=== PATIENT | male | born 1990 | race Caucasian/White ===

== ENCOUNTER 2021-03-30 18:40 | Observation (INO) | payer MEDICAID, OTHER ==
[~2021-03-30] VITALS: Ht 188 cm; Wt 85.0 kg
[2021-03-30] MEDS ORDERED: LORazepam 1MG TABLET PO ONE (19:00)
[2021-03-30 19:30] LABS: BASOPHILS % (AUTO) 0 % (0-1); EOSINOPHILS % (AUTO) 2 % (1-7); LYMPHOCYTES % (AUTO) 16 % (22-44); MEAN CORPUSCULAR HEMOGLOBIN 31.3 pg (27.5-34.5); MEAN CORPUSCULAR HGB CONC 34.8 g/dL (33.2-36.2); MEAN PLATELET VOLUME 6.7 fL (7.4-10.4); MONOCYTES % (AUTO) 12 % (2-9); NEUTROPHILS % (AUTO) 69 % (42-75); PLATELET COUNT 355 x10^3/uL (130-400); RED BLOOD COUNT 5.01 x10^6/uL (4.38-5.82); RED CELL DISTRIBUTION WIDTH 12.8 % (9.4-14.8)
[2021-03-30 19:42] LABS: ALANINE AMINOTRANSFERASE 24 U/L (12-78); ALBUMIN 3.8 g/dL (3.4-5.0); ANION GAP 7 mmol/L (5-15); CALCIUM 9.3 mg/dL (8.5-10.1); CHLORIDE 99 mmol/L (98-107); CREATININE 1.12 mg/dL (0.7-1.3); SALICYLATE LEVEL 2.6 mg/dL (2.8-20.0)
[2021-03-30 19:52] LABS: ALKALINE PHOSPHATASE 100 U/L (45-117); BILIRUBIN,TOTAL 0.4 mg/dL (0.2-1.0); TOTAL PROTEIN 8.1 g/dL (6.4-8.2)
--- NOTE | 2021-03-30 20:12 | NUR ---
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 DENIES SI/HI AT THIS TIME.
--- NOTE | 2021-03-30 20:30 | NUR ---
ROOM SECURE. GARAGE DOORS DOWN. SI PRECAUTIONS MAINTAINED. WILL CONTINUE TO MONITOR.
--- NOTE | 2021-03-30 20:35 | NUR ---
PATIENT BELONGINGS PLACED IN BAG WITH PATIENT LABEL. 3 BAGS AND BOOKBAG LOCKED AWAY. PATIENT UNDRESSED AND IN GOWN. PROVIDED WITH BLANKETS/ WATER/ MILK/ TURKEY SANDWHICH AND CHIPS. PATIENT VERY APPRECIATIVE. DENIES ANY FURTHER NEEDS AT THIS TIME. WILL CONTINUE TO MONITOR.
--- NOTE | 2021-03-30 20:46 | NUR ---
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 SITTER PRESENT AT DOORWAY FOR OBS
[2021-03-30] MEDS ORDERED: LORazepam 1MG TABLET ONE (20:54)
[2021-03-30 21:11] LABS: AMPHETAMINE SCREEN, URINE Negative (Negative); BARBITURATE SCREEN, URINE Negative (Negative); BENZODIAZEPINE SCREEN, URINE Negative (Negative); CANNABINOID SCREEN, URINE Negative (Negative); COCAINE SCREEN, URINE Negative (Negative); METHADONE SCREEN, URINE Negative (Negative); OPIATE SCREEN, URINE Negative (Negative)
--- NOTE | 2021-03-30 21:25 | NUR ---
PATIENT PROVIDED WITH BLANKETS/ PILLOW. LIGHTS TURNED DOWN. PATIENT DENIES NEEDS AT THIS TIME. SI PRECAUTIONS REMAIN. 1:[address] ROOM SECURE. WILL CONTINUE TO MONITOR.
[2021-03-30] MEDS ORDERED: LORazepam 1MG TABLET PO PRN (22:00)
--- NOTE | 2021-03-30 22:00 | NUR ---
PATIENT LYING IN STRETCHER WITH EYES CLOSED. NAD. 1:[address] SI PRECAUTIONS REMAIN. ROOM SECURE. DENIES NEEDS AT THIS TIME. WILL CONTINUE TO MONITOR.
--- NOTE | 2021-03-31 00:50 | NUR ---
REPORT GIVEN TO ZACH ARITA
--- NOTE | 2021-03-31 00:53 | NUR ---
Report from Paradise SERRANO
--- NOTE | 2021-03-31 00:59 | NUR ---
FAXED PACKET TO [facility] AND [facility]
--- NOTE | 2021-03-31 01:14 | NUR ---
JOVANNY ([facility]) PT WOULD HAVE TO BE SELF PAY
--- NOTE | 2021-03-31 01:22 | NUR ---
Pt resting in bed with eyes closed, even and symmetrical chest rise, sitter in view of pt, WCTM
--- NOTE | 2021-03-31 02:00 | NUR ---
Patient resting with eyes closed, bilateral chest rise and fall, no apparent distress. Continue to monitor patients condition with sitter at bedside.
--- NOTE | 2021-03-31 03:00 | NUR ---
Patient resting with eyes closed, bilateral chest rise and fall, no apparent distress. Continue to monitor patients condition with sitter at bedside.
--- NOTE | 2021-03-31 04:00 | NUR ---
Patient resting with eyes closed, bilateral chest rise and fall, no apparent distress. Continue to monitor patients condition with sitter at bedside.
--- NOTE | 2021-03-31 05:01 | NUR ---
Patient resting with eyes closed, bilateral chest rise and fall, no apparent distress. Continue to monitor patients condition with sitter at bedside.
--- NOTE | 2021-03-31 06:06 | NUR ---
Patient resting with eyes closed, bilateral chest rise and fall, no apparent distress. Continue to monitor patients condition with sitter at bedside.
--- NOTE | 2021-03-31 06:53 | NUR ---
REPORT FROM ZACH ARITA. PT RESTING IN [facility], EYES CLOSED, NADN AT THIS TIME, TM.
[2021-03-31] MEDS: NICOTINE 21 MG/24 HR PATCH.TD24 TD SCH (11:30)
[2021-03-31] MEDS ORDERED: HYDROXYZINE PAMOATE 50MG CAP PO PRN (12:00)
[2021-03-31] MEDS ORDERED: NICOTINE 21 MG/24 HR PATCH.TD24 ONE (12:15)
--- NOTE | 2021-03-31 13:10 | NUR ---
REPORT TO ZACH SHIPMAN.
[2021-03-31] MEDS: BENZTROPINE 1 MG TABLET PO SCH ×2 (13:42→21:00)
--- NOTE | 2021-03-31 13:53 | NUR ---
PT. REMAINS CALM AND COOPERATIVE. SITTER OUTSIDE OF THE PT.'S ROOM AND SAFETY MEASURES ARE BEING MAINTAINED. GARAGE DOORS ARE DOWN. PT. WAS MEDICATED PER MD ORDERS. VSS. PT. IS EATING LUNCH AT THIS TIME.
--- NOTE | 2021-03-31 15:21 | NUR ---
PT. IS RESTING WITHOUT CONCERNS. PT. HAS BEEN GIVEN PO FLUIDS AND REMAINS IN DIRECT LINE OF SITE OF THE SITTER.
--- NOTE | 2021-03-31 17:09 | NUR ---
PT. WAS GIVEN A MEAL TRAY.
--- NOTE | 2021-03-31 17:26 | NUR ---
PT. REMAINS CALM AND COOPERATIVE. HE FINISHED HIS DINNER. VSS. SITTER OUTSIDE OF HIS ROOM. SAFETY MEASURES ARE BEING MAINTAINED.
--- NOTE | 2021-03-31 19:00 | NUR ---
PT RESTING IN NO APPARENT DISTRESS. ALERT AND ORIENTED. CALM AND COOPERATIVE. SITTER AT BEDSIDE. ROOM SECURED. AWAITING INPATIENT PSYCH PLACEMENT.
--- NOTE | 2021-03-31 20:00 | NUR ---
PT RESTING IN NO APPARENT DISTRESS. ALERT AND ORIENTED. CALM AND COOPERATIVE. SITTER AT BEDSIDE. ROOM SECURED. AWAITING INPATIENT PSYCH PLACEMENT.
[2021-03-31] MEDS ORDERED: BENZTROPINE 1 MG TABLET ONE (20:30)
--- NOTE | 2021-03-31 20:33 | NUR ---
Med requested from Pharmacy.
--- NOTE | 2021-03-31 21:00 | NUR ---
PT RESTING IN NO APPARENT DISTRESS. ALERT AND ORIENTED. CALM AND COOPERATIVE. SITTER AT BEDSIDE. ROOM SECURED. AWAITING INPATIENT PSYCH PLACEMENT.
--- NOTE | 2021-03-31 22:00 | NUR ---
PT RESTING IN NO APPARENT DISTRESS. ALERT AND ORIENTED. CALM AND COOPERATIVE. SITTER AT BEDSIDE. ROOM SECURED. AWAITING INPATIENT PSYCH PLACEMENT.
--- NOTE | 2021-03-31 23:00 | NUR ---
PT RESTING IN NO APPARENT DISTRESS. ALERT AND ORIENTED. CALM AND COOPERATIVE. SITTER AT BEDSIDE. ROOM SECURED. AWAITING INPATIENT PSYCH PLACEMENT.
--- NOTE | 2021-04-01 | NUR ---
PT RESTING IN NO APPARENT DISTRESS. ALERT AND ORIENTED. CALM AND COOPERATIVE. SITTER AT BEDSIDE. ROOM SECURED. AWAITING INPATIENT PSYCH PLACEMENT.
--- NOTE | 2021-04-01 00:39 | NUR ---
Pt assisted to shower at this time. Bathing himself independently, denies needs. Sitter outside of shower. Door cracked opened, privacy maintained. Pt provided with hospital bed, mathew removed from room at this time.
--- NOTE | 2021-04-01 01:00 | NUR ---
PT RESTING IN NO APPARENT DISTRESS. ALERT AND ORIENTED. CALM AND COOPERATIVE. SITTER AT BEDSIDE. ROOM SECURED. AWAITING INPATIENT PSYCH PLACEMENT.
--- NOTE | 2021-04-01 02:00 | NUR ---
PATIENT LYING IN HOSPITAL INPATIENT BED WITH EYES CLOSED. NAD. 1:[address] ROOM REMAINS SECURE. WILL CONTINUE TO MONITOR.
--- NOTE | 2021-04-01 03:20 | NUR ---
PATIENT LYING IN HOSPITAL INPATIENT BED WITH EYES CLOSED. NAD. 1:[address] ROOM REMAINS SECURE. WILL CONTINUE TO MONITOR.
--- NOTE | 2021-04-01 04:00 | NUR ---
PATIENT LYING IN HOSPITAL INPATIENT BED WITH EYES CLOSED. NAD. 1:[address] ROOM REMAINS SECURE. WILL CONTINUE TO MONITOR.
--- NOTE | 2021-04-01 05:24 | NUR ---
PATIENT LYING IN HOSPITAL INPATIENT BED WITH EYES CLOSED. NAD. 1:[address] ROOM REMAINS SECURE. WILL CONTINUE TO MONITOR.
--- NOTE | 2021-04-01 06:28 | NUR ---
RN TO BEDSIDE FOR VITAL SIGNS. PATIENT DENIES NEEDS AT THIS TIME. VSS. PT REPORTS HE SLEPT WELL OVER NIGHT. 1:[address] SI PRECAUTIONS REMAIN IN PLACE. ROOM REMAINS SECURE. WILL CONTINUE TO MONITOR.
--- NOTE | 2021-04-01 06:53 | NUR ---
REPORT GIVEN TO ZACH HILL.
--- NOTE | 2021-04-01 06:58 | NUR ---
PT ASLEEP IN BED, NAD NOTED AT THIS TIME. SITTER OUTSIDE OF ROOM FOR DIRECT OBSERVATION AND Q15 MIN SAFETY CHECKS.
--- NOTE | 2021-04-01 08:02 | NUR ---
PT ASLEEP IN BED, NAD NOTED. RESPIRATIONS EVEN AND UNLABORED ON RA. AWAITING BREAKFAST TRAY. SITTER OUTSIDE OF ROOM FOR DIRECT OBSERVATION AND Q15 MIN SAFETY CHECKS.
[2021-04-01] MEDS ORDERED: BENZTROPINE 1 MG TABLET ONE ×2 (08:57→20:44)
[2021-04-01] MEDS ORDERED: NICOTINE 21 MG/24 HR PATCH.TD24 ONE (08:57)
[2021-04-01] MEDS: NICOTINE 21 MG/24 HR PATCH.TD24 TD SCH (09:06)
[2021-04-01] MEDS: BENZTROPINE 1 MG TABLET PO SCH ×2 (09:06→20:46)
--- NOTE | 2021-04-01 09:13 | NUR ---
PT GIVEN BREAKFAST TRAY. PT AWAKENS EASILY AND IS COOPERATIVE WITH VS MEASUREMENT AND ASSESSMENT BY ED RN. NAD NOTED AT THIS TIME. MEDICATIONS ADMINISTERED PER EMAR. AWAITING THIRD AM MED FROM PHARMACY, REQUEST SENT 20 MIN AGO.
--- NOTE | 2021-04-01 09:38 | NUR ---
CALL TO PHARMACY FOR FOLLOW UP ON MED REQUEST.
--- NOTE | 2021-04-01 11:00 | NUR ---
BED DIRECTION CHANGED SO PT COULD WATCH TELEVISION. REMOTE GIVEN TO PT. NAD NOTED AT THIS TIME. SITTER OUTSIDE OF ROOM FOR DIRECT OBSERVATION AND Q15 MIN SAFETY CHECKS. LUNCH ORDERED FOR PT.
--- NOTE | 2021-04-01 12:02 | NUR ---
PT RECLINED IN BED, RESPIRATIONS EVEN AND UNLABORED ON RA. NAD NOTED AT THIS TIME. SITTER OUTSIDE OF ROOM FOR DIRECT OBSERVATION AND Q15 MIN SAFETY CHECKS.
--- NOTE | 2021-04-01 13:02 | NUR ---
PT ASLEEP IN BED, RESPIRATIONS EVEN AND UNLABORED ON RA. NAD NOTED AT THIS TIME. SITTER OUTSIDE OF ROOM FOR DIRECT OBSERVATION AND Q15 MIN SAFETY CHECKS.
--- NOTE | 2021-04-01 14:21 | NUR ---
REQUEST SENT TO PHARMACY FOR PM MEDS.
--- NOTE | 2021-04-01 15:02 | NUR ---
PT RESTING COMFORTABLY IN BED, NAD NOTED AT THIS TIME. RESPIRATIONS EVEN AND UNLABORED ON RA. SITTER OUTSIDE OF ROOM FOR DIRECT OBSERVATION AND Q15 MIN SAFETY CHECKS.
--- NOTE | 2021-04-01 15:26 | NUR ---
YANIV AT [facility] [place] SAID POSSIBLY TOMORROW IN MORNING. CALL [phone] AROUND 6 AM TO CHECK
--- NOTE | 2021-04-01 15:48 | NUR ---
SENTHIL CALLED BACK. PT IS ACCEPTED FOR 04/[address] SCOTT. NUMBER FROM PREVIOUS NOTE TO BE CALL AFTER 0600 TO GIVE REPORT
--- NOTE | 2021-04-01 16:23 | NUR ---
THIS RN BACK FROM LUNCH BREAK. PT RESTING COMFORTABLY IN BED. SITTER OUTSIDE OF ROOM FOR DIRECT OBSERVATION AND Q15 MIN SAFETY CHECKS.
--- NOTE | 2021-04-01 17:04 | NUR ---
PT RESTING IN BED WATCHING TELEVISION. NAD NOTED AT THIS TIME. SITTER OUTSIDE OF ROOM FOR DIRECT OBSERVATION AND Q15 MIN SAFETY CHECKS. SIDE RAIL UP. AWAITING MEAL TRAY.
--- NOTE | 2021-04-01 18:00 | NUR ---
PT RESTING WITH EYES CLOSED IN BED, NAD NOTED AT THIS TIME. SITTER OUTSIDE OF ROOM FOR DIRECT OBSERVATIONS AND Q15 MIN SAFETY CHECKS. WATER ADMINISTERED.
--- NOTE | 2021-04-01 18:44 | NUR ---
MEAL TRAY PROVIDED. NAD NOTED AT THIS TIME. ADDITIONAL PO FLUIDS GIVEN. NAD NOTED AT THIS TIME. SITTER OUTSIDE OF ROOM FOR DIRECT OBSERVATION AND Q15 MIN SAFETY CHECKS.
--- NOTE | 2021-04-01 18:45 | NUR ---
BEDSIDE REPORT RECEIVED FROM LIZ SERRANO, PT CARE TRANSFERRED AT THIS TIME.
--- NOTE | 2021-04-01 19:01 | NUR ---
REPORT TO ZACH CHOUDHARY.
[2021-04-01 19:29] VITALS: BP 127/72
--- NOTE | 2021-04-01 20:14 | NUR ---
Patient is resting comfortably in hospital bed, NAD, room secured, sitter in line of sight. Bed in lowest, rails engaged, even and unlabored respirations noted at this time, eyes closed. WCTM.
--- NOTE | 2021-04-01 21:32 | NUR ---
MURRAY RN: TRANSORT ARRANGED VIA [facility] FOR 04/02/21 @0800AM.
--- NOTE | 2021-04-02 02:21 | NUR ---
Patient is resting comfortably in hospital bed, eyes closed, NAD, room secured, sitter in line of sight. Bed in lowest, rails engaged, even and unlabored respirations noted at this time, report to Veronica SERRANO, pt care transferred at this time.
--- NOTE | 2021-04-02 02:54 | NUR ---
pt sleeping in bed, resp even/unlbaored. no s/s of any distress. in line of sight of sitter
--- NOTE | 2021-04-02 04:19 | NUR ---
pt sleeping in gurney, resp even/unlabored. in line of sight of emili
--- NOTE | 2021-04-02 06:50 | NUR ---
report from ZACH Joshua
--- NOTE | 2021-04-02 07:17 | NUR ---
PT RESTING ON GURNEY, NADN, RESPIRATIONS EVEN AND UNLABORED. PT IN SAFE ENVIRONMENT, SITTER IN VIEW. PT UPDATED ON POC. DENIES SI/HI AT THIS TIME.
--- NOTE | 2021-04-02 08:00 | NUR ---
PT CONTINUES RESTING ON GURNEY, NADN, RESPIRATIONS EVEN AND UNLABORED. PT IN SAFE ENVIRONMENT, SITTER IN VIEW. PT STATES NO NEEDS AT THIS TIME
--- NOTE | 2021-04-02 08:07 | NUR ---
PT DC TO [facility] VIA [facility]. PT AMBULATORY WITH [facility] STEADY GAIT. ALL BELONGINGS SENT WITH PT & EMS.
== END 2021-04-02 08:08 | disposition home or self-care (01) ==
LOC: ED 21:11 → EDIP 21:57
PROVIDERS: ADMIT Emergency Medicine; ATTEND Internal Medicine
DX: R45.851 Suicidal ideations (principal); F25.9 Schizoaffective disorder, unspecified; F41.8 Other specified anxiety disorders; F17.200 Nicotine dependence, unspecified, uncomplicated; F15.90 Other stimulant use, unspecified, uncomplicated; Z79.899 Other long term (current) drug therapy
CPT/HCPCS: 36415; 80053; 80299; 80307; 80320; 80329; 84443; 85025; 93005; 99284; G0378; Q0161; G0480